=== PATIENT | female | born 1950 | race Caucasian/White ===

== ENCOUNTER 2020-12-12 11:01 | Day surgery (SDC) | payer OTHER ==
[~2020-12-12] VITALS: Ht 154.9 cm; Wt 99.7 kg
[~2020-12-12 11:01] MED LIST: Aspir 8181 MG PO; CLARITIN-D 121 EAC1 PO; DULO30 PO; ESTR1; EUTHYROX88 MCG PO; GABA300T24 PO; LEVSOD88; METO25ER PO; OMEPRAZOLE20 M1 PO; PRAV20 PO; PRINIVIL5 M1 PO; Vitamin B-121000 MCG PO; ZOLP10 PO
== END 2020-12-12 13:41 | disposition home or self-care (01) ==
LOC: ORSCSDS 11:01
PROVIDERS: Orthopaedic Surgery
PROC: 01N54ZZ Release Median Nerve, Percutaneous Endoscopic Approach (ICD-10-PCS; principal; 2020-12-12 12:30)
DX: G56.02 Carpal tunnel syndrome, left upper limb (principal); I10 Essential (primary) hypertension; M79.7 Fibromyalgia; E66.9 Obesity, unspecified; Z68.41 Body mass index [BMI] 40.0-44.9, adult; Z79.899 Other long term (current) drug therapy
CPT/HCPCS: J2250; J3010

== ENCOUNTER 2022-07-28 16:06 | Emergency (ER) | payer OTHER ==
[~2022-07-28] VITALS: Ht 160 cm; Wt 90.7 kg
[2022-07-28 16:54] LABS: BASOPHILS ABSOLUTE AUTO 0.04 K/mm3 (0.00-0.23); BASOPHILS PERCENT AUTO 0 % (0-2); EOSINOPHILS PERCENT AUTO 3 % (0-6); Hematocrit 38.8 % (33.0-51.0); Hemoglobin 12.4 g/dL (11.5-16.0); IMMATURE GRAN ABSOLUTE AUTO 0.03 K/mm3 (0.00-0.10); IMMATURE GRAN PERCENT AUTO 0 % (0-1); LYMPHOCYTES ABSOLUTE AUTO 1.79 K/mm3 (0.84-5.20); LYMPHOCYTES PERCENT AUTO 17 % (21-46); MONOCYTES ABSOLUTE AUTO 0.79 K/mm3 (0.16-1.47); MONOCYTES PERCENT AUTO 8 % (4-13); Mean Corpuscular HGB 29.7 pg (26.0-34.0); Mean Corpuscular Volume 93 fL (80-100); Mean Platelet Volume 10.3 fL (9.1-12.4); NEUTROPHILS ABSOLUTE AUTO 7.43 K/mm3 (1.96-9.15); NEUTROPHILS PERCENT AUTO 72 % (41-73); Platelet Count 223 K/mm3 (150-400); RDW Coefficient Variation 12.6 % (11.7-14.2); RDW Standard Deviation 43.1 fL (35.1-46.3); Red Blood Cell Count 4.18 M/mm3 (3.80-5.20); White Blood Cell Count 10.38 K/mm3 (4.00-11.30)
[2022-07-28 17:06] LABS: Albumin, Blood 3.4 g/dL (3.4-5.0); Albumin/Globulin Ratio 0.9 (0.8-1.8); Bilirubin, Total 0.3 mg/dL (0.1-1.0); Bun/Creatinine Ratio 13.2 (12.0-20.0); Calcium, Blood 9.3 mg/dL (8.5-10.1); Creatinine, Blood 1.06 mg/dL (0.40-1.00); Globulin, Blood 3.8 g/dL (2.2-4.0); Total Protein, Blood 7.2 g/dL (6.4-8.2)
[2022-07-28] MEDS ORDERED: CEPH500 PO (18:51)
== END 2022-07-28 19:02 | disposition home or self-care (01) ==
LOC: ER 16:06
PROVIDERS: Physician Assistant
DX: L02.31 Cutaneous abscess of buttock (principal); Z79.899 Other long term (current) drug therapy; Z79.82 Long term (current) use of aspirin
CPT/HCPCS: 36415; 72193; 80053; 85025; A9270; Q9967

== ENCOUNTER 2023-12-21 09:56 | Observation (INO) | payer OTHER ==
[~2023-12-21] VITALS: Ht 152.4 cm; Wt 95.5 kg
[~2023-12-21 09:56] MED LIST changes: +CEPH500 PO
[2023-12-21] MEDS ORDERED: PREG150 PO (10:40)
[2023-12-21] MEDS ORDERED: VITAMIN D325 MC3 PO (10:41)
[2023-12-21] MEDS ORDERED: PREG75 PO (10:41)
[2023-12-21] MEDS ORDERED: Prinivil10 MG PO (10:41)
[2023-12-21] MEDS ORDERED: SYSTANE ULTRA P10 ML (10:42)
[2023-12-21] MEDS ORDERED: DOCU100 PO (10:42)
[2023-12-21] MEDS ORDERED: IBUP200 PO (10:42)
[2023-12-21] MEDS ORDERED: Vitamin B Comple1 EA PO (10:42)
[2023-12-21 11:17] LABS: BASOPHILS ABSOLUTE AUTO 0.03 K/mm3 (0.00-0.23); BASOPHILS PERCENT AUTO 1 % (0-2); EOSINOPHILS PERCENT AUTO 2 % (0-6); Hematocrit 35.5 % (33.0-51.0); Hemoglobin 11.8 g/dL (11.5-16.0); IMMATURE GRAN ABSOLUTE AUTO 0.01 K/mm3 (0.00-0.10); IMMATURE GRAN PERCENT AUTO 0 % (0-1); LYMPHOCYTES PERCENT AUTO 18 % (21-46); MONOCYTES ABSOLUTE AUTO 0.43 K/mm3 (0.16-1.47); MONOCYTES PERCENT AUTO 7 % (4-13); Mean Corpuscular HGB 29.6 pg (26.0-34.0); Mean Corpuscular HGB Conc 33.2 g/dL (31.5-36.5); Mean Corpuscular Volume 89 fL (80-100); Mean Platelet Volume 11.1 fL (9.1-12.4); NEUTROPHILS ABSOLUTE AUTO 4.42 K/mm3 (1.96-9.15); NEUTROPHILS PERCENT AUTO 73 % (41-73); Platelet Count 165 K/mm3 (150-400); RDW Coefficient Variation 12.7 % (11.7-14.2); RDW Standard Deviation 41.1 fL (35.1-46.3); Red Blood Cell Count 3.98 M/mm3 (3.80-5.20); White Blood Cell Count 6.09 K/mm3 (4.00-11.30)
[2023-12-21 11:21] LABS: Albumin, Blood 3.5 g/dL (3.4-5.0); Bun/Creatinine Ratio 20.8 (12.0-20.0); Calcium, Blood 8.9 mg/dL (8.5-10.1); Creatinine, Blood 0.77 mg/dL (0.40-1.00); Globulin, Blood 3.6 g/dL (2.2-4.0); Potassium, Blood 3.7 mmol/L (3.5-5.5); Total Protein, Blood 7.1 g/dL (6.4-8.2)
[2023-12-21] MEDS ORDERED: Furosemide 10 MG/ML 4ML Vial IV ONE (13:25)
[2023-12-21] MEDS ORDERED: FLU VACC QS2023-24(6MOS UP)/PF 60 MCG/0.5 ML SYRINGE IM SCH (15:00)
[2023-12-21] MEDS ORDERED: Enoxaparin 40 MG/0.4 ML SYR SC SCH (15:00)
[2023-12-21] MEDS ORDERED: HydrALAZINE HCl 20 MG / ML 1ML Vial IV PRN ×2 (15:00→17:25)
[2023-12-21] MEDS ORDERED: HydrALAZINE HCl 20 MG / ML 1ML Vial IV ONE (15:00)
[2023-12-21] MEDS ORDERED: Docusate Sodium 100 MG Cap PO PRN (15:10)
[2023-12-21 17:28] VITALS: BP 164/92
[2023-12-21] MEDS ORDERED: TraMADol HCl 50 MG Tab PO PRN (18:05)
[2023-12-21] MEDS ORDERED: Acetaminophen 325 MG TABLET PO PRN (18:05)
[2023-12-21 20:03] VITALS: BP 142/86
[2023-12-21] MEDS ORDERED: Pregabalin 75 MG Cap PO SCH (21:00)
[2023-12-21] MEDS ORDERED: Pravastatin Sodium 20 MG Tab PO SCH (21:00)
--- NOTE | 2023-12-22 03:47 | NUR ---
SHIFT SUMMARY PT A&O X4, CALM AND COOPERATIVE WITH CARE. PT COMPLAINING OF BLE PAIN MORE SO ON THE LEFT SIDE. 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 SEE EMAR. TELE: YANIQUE W/CHRISTINE @89. DENIES CP OR PRESSURE. IP ASSIST TO BATHROOM. STRICT I&Os MAINTAINED. AT BEDSIDE AT START OF SHIFT. BED IN LOWEST POSIITON WITH CALL LIGHT IN REACH.
[2023-12-22 05:03] VITALS: BP 158/67
[2023-12-22] MEDS ORDERED: Omeprazole 20 MG CapCR PO SCH (06:00)
[2023-12-22] MEDS ORDERED: Levothyroxine Sodium 0.088 MG Tab PO SCH (06:00)
[2023-12-22 06:03] LABS: BASOPHILS ABSOLUTE AUTO 0.03 K/mm3 (0.00-0.23); BASOPHILS PERCENT AUTO 0 % (0-2); EOSINOPHILS PERCENT AUTO 2 % (0-6); Hemoglobin 12.4 g/dL (11.5-16.0); IMMATURE GRAN ABSOLUTE AUTO 0.02 K/mm3 (0.00-0.10); IMMATURE GRAN PERCENT AUTO 0 % (0-1); LYMPHOCYTES ABSOLUTE AUTO 1.71 K/mm3 (0.84-5.20); LYMPHOCYTES PERCENT AUTO 25 % (21-46); MONOCYTES ABSOLUTE AUTO 0.56 K/mm3 (0.16-1.47); MONOCYTES PERCENT AUTO 8 % (4-13); Mean Corpuscular HGB 29.5 pg (26.0-34.0); Mean Corpuscular HGB Conc 33.5 g/dL (31.5-36.5); Mean Corpuscular Volume 88 fL (80-100); Mean Platelet Volume 12.1 fL (9.1-12.4); NEUTROPHILS ABSOLUTE AUTO 4.47 K/mm3 (1.96-9.15); NEUTROPHILS PERCENT AUTO 65 % (41-73); Platelet Count 185 K/mm3 (150-400); RDW Coefficient Variation 12.8 % (11.7-14.2); RDW Standard Deviation 41.1 fL (35.1-46.3); White Blood Cell Count 6.89 K/mm3 (4.00-11.30)
[2023-12-22 06:28] LABS: Albumin, Blood 3.5 g/dL (3.4-5.0); Albumin/Globulin Ratio 0.9 (0.8-1.8); Bilirubin, Total 0.7 mg/dL (0.1-1.0); Bun/Creatinine Ratio 21.7 (12.0-20.0); Calcium, Blood 9.3 mg/dL (8.5-10.1); Creatinine, Blood 0.87 mg/dL (0.40-1.00); Globulin, Blood 3.7 g/dL (2.2-4.0); Total Protein, Blood 7.2 g/dL (6.4-8.2)
[2023-12-22] MEDS ORDERED: Potassium Chloride 20 MEQ TabCR PO ONE (06:45)
[2023-12-22 07:28] VITALS: BP 154/78
[2023-12-22] MEDS ORDERED: Furosemide 10 MG/ML 4ML Vial IV SCH (08:00)
[2023-12-22] MEDS ORDERED: Pregabalin 75 MG Cap PO SCH (09:00)
[2023-12-22] MEDS ORDERED: Lisinopril 20 MG Tab PO SCH (09:00)
[2023-12-22] MEDS ORDERED: Metoprolol Succinate 25 MG TABCR PO SCH (09:00)
[2023-12-22] MEDS ORDERED: AMLO5 PO (15:49)
[2023-12-22] MEDS ORDERED: FURO20 PO (15:49)
[2023-12-22] MEDS ORDERED: POTA10T PO (15:50)
[2023-12-22 16:21] VITALS: BP 152/63
--- NOTE | 2023-12-22 17:18 | NUR ---
DISCHARGE NOTE: DISCUSSED DISCHARGE WITH PATIENT AND PROVIDED WRITTEN INSTRUCTIONS IN DISCHARGE PACKET. PATIENT'S IV WAS REMOVED AND HER TELEMETRY WAS D/C'D AND SENT BACK TO PCU. PATIENT GOT DRESSED INDEPENDENTLY AND GATHERED HER OWN BELONGINGS. HER YESY WAS AT BEDSIDE AND ASSISTED WITH HER THINGS WHILE SHE WAS TRANSPORTED DOWN VIA WHEELCHAIR BY [facility] TO [facility]. NO SIGNS OR SYMPTOMS OF DISTRESS WITH DISCHARGE.
[2023-12-22] MEDS ORDERED: Zolpidem Tartrate 10 MG Tab PO SCH (21:00)
== END 2023-12-22 16:48 | disposition home or self-care (01) ==
LOC: ER 09:56 → MEDS 09:57
PROVIDERS: Family Medicine; Physician Assistant; ADMIT Internal Medicine
DX: J90 Pleural effusion, not elsewhere classified (principal); R07.89 Other chest pain; I10 Essential (primary) hypertension; Z88.8 Allergy status to other drugs, medicaments and biological substances; Z79.82 Long term (current) use of aspirin; Z79.899 Other long term (current) drug therapy; E78.5 Hyperlipidemia, unspecified; M79.7 Fibromyalgia
CPT/HCPCS: 36415; 71046; 71260; 80053; 83735; 83880; 84443; 84484; 85025; 85379; 93005; 93010; 93306; 96372; 96374-59; 96375-59; 96376; 99285-25; A9270; G0378; J1650; J1940; Q9967